=== PATIENT | female | born 1995 | race Two or more races ===

== ENCOUNTER 2018-12-24 10:26 | Emergency (ER) | payer MEDICAID ==
[~2018-12-24] VITALS: Ht 149.9 cm; Wt 73.0 kg
[2018-12-24 10:38] VITALS: BP 120/83
[2018-12-24] MEDS ORDERED: METF500T17 PO (11:01)
== END 2018-12-24 11:39 | disposition home or self-care (01) ==
LOC: ED 11:31
DX: L03.011 Cellulitis of right finger (principal); B35.4 Tinea corporis; E11.9 Type 2 diabetes mellitus without complications; Z76.0 Encounter for issue of repeat prescription; J02.9 Acute pharyngitis, unspecified
CPT/HCPCS: 82962; 99283